=== PATIENT | female | born 1970 ===

== ENCOUNTER → 2021-04-28 08:00 | Outpatient (CLI) | payer OTHER ==
[~2021-04-28 08:00] MED LIST: AVAPRO300 MG PO; IBESARTAN PO
== END | disposition home or self-care (01) ==
LOC: ADM 04-24 08:45 → LAB 08:00 → ADM 08:45 → CIR.AMB 05-03 08:45 → EDSTATUS 05-03 08:45 → EDBD 05-03 08:45
PROVIDERS: ATTEND Colon & Rectal Surgery
DX: K60.5 Anorectal fistula (principal); K92.1 Melena; K64.2 Third degree hemorrhoids; Z03.818 Encounter for observation for suspected exposure to other biological agents ruled out; I10 Essential (primary) hypertension